=== PATIENT | female | born 1980 | race Caucasian/White ===

== ENCOUNTER 2023-09-11 09:31 | Outpatient (OUT) | payer OTHER, SELFPAY ==
--- NOTE | 2023-09-11 09:33 | MM_ITS ---
Patient Name: ARIANNA REED MR#: [id number] : 1980 Exam Date: 09/11/2023 Ordering Doctor: DR Tyron Duffy . RADIOLOGY REPORT PROCEDURE: MM TOMOSYNTHESIS SCREENING BI COMPARISON: [facility] MAMM DIAGNOSTIC 3D IGNACIA CAD, 06/26/2021. MG MAMM SCREEN 3D IGNACIA CAD, 09/08/2022. INDICATIONS: Screening Calculator Name NCI Breast Cancer Risk Assessment Tool 5 Year Breast Cancer Risk 0.80% Lifetime Breast Cancer Risk 12.20% Personal Breast Cancer No Personal Ovarian Cancer No Treatments None Family Cancers Grandmother-maternal with colon cancer at age 60. LOCATION: [facility] BREAST COMPOSITION: Extremely dense, which lowers the sensitivity of mammography. FINDINGS: DIAGNOSTIC CATEGORY 1--NEGATIVE. NO CHANGE FROM COMPARISON ASSESSMENT. Scattered benign-appearing lymph nodes are present. RIGHT BREAST: No significant suspicious finding. LEFT BREAST: No significant suspicious finding. RECOMMENDATIONS: ROUTINE MAMMOGRAM AND CLINICAL EVALUATION IN 12 MONTHS. PLEASE NOTE: A NORMAL MAMMOGRAM DOES NOT EXCLUDE THE POSSIBILITY OF BREAST CANCER. A CLINICALLY SUSPICIOUS PALPABLE LUMP SHOULD BE BIOPSIED. Dictated by: Dharmesh Smyth MD on 09/11/2023 at 12:58 Approved by: Dharmesh Smyth MD on 09/11/2023 at 13:00
== END 2023-09-11 09:32 | disposition home or self-care (01) ==
LOC: MAMMO 09:31
PROVIDERS: PCP Internal Medicine; Visit Provider Obstetrics & Gynecology
DX: Z12.31 Encounter for screening mammogram for malignant neoplasm of breast (principal); Z80.0 Family history of malignant neoplasm of digestive organs
CPT/HCPCS: 77063; 77067

== ENCOUNTER 2023-09-22 20:14 | Outpatient (REF) | payer OTHER, SELFPAY ==
[2023-09-25 13:09] LABS: Age Gdln ACOG Testing Note (.); HPV Aptima Negative (Negative); IGP, Aptima HPV, rfx 16/18,45 Note (.)
== END 2023-09-22 20:15 | disposition home or self-care (01) ==
LOC: LAB 20:14
PROVIDERS: PCP Internal Medicine; Visit Provider Obstetrics & Gynecology
DX: Z01.419 Encounter for gynecological examination (general) (routine) without abnormal findings (principal)
CPT/HCPCS: 87624; G0145

== ENCOUNTER 2024-09-12 09:30 | Outpatient (OUT) | payer OTHER, SELFPAY ==
--- OUTSIDE RECORDS SUMMARY | 2024-09-12 09:49 | XMS_ITS | CCD ---
Author Organization [facility] Care Team Providers Care Clinical Nursing Professor Name Role Phone DARLENE ., DR HUGHES Admitting Unavailable BALL, DR HENSLEY Primary Care Unavailable DARLENE ., DR HUGHES Consulting Unavailable DARLENE ., DR HUGHES Attending Unavailable ZIEBER, DR ELI Dawson Consulting Unavailable BALL, DR HENSLEY Consulting Unavailable HENOK, DR HENSLEY Attending Unavailable BALL, DR HENSLEY Admitting Unavailable BALL, DR HENSLEY Primary Care Unavailable DARLENE ., DR HUGHES Admitting Unavailable BALL, DR HENSLEY Primary Care Unavailable DARLENE ., DR HUGHES Attending Unavailable DARLENE ., DR HUGHES Admitting Unavailable DARLENE ., DR HUGHES Consulting Unavailable DARLENE ., DR HUGHES Attending Unavailable BALL, DR HENSLEY Primary Care Unavailable ZIEBER, DR ELI Dawson Consulting Unavailable DARLENE ., DR HUGHES Admitting Unavailable DARLENE ., DR HUGHES Consulting Unavailable DARLENE ., DR HUGHES Attending Unavailable BALL, DR HENSLEY Primary Care Unavailable DARLENE ., DR HUGHSE Attending Unavailable [place], DR DAVID Cárdenas Consulting Unavailable DARLENE ., DR HUGHES Admitting Unavailable HENOK, DR HENSLEY Primary Care Unavailable DARLENE ., DR HUGHES Consulting Unavailable HENOK, DR HENSLEY Attending Unavailable BALL, DR HENSLEY Admitting Unavailable HENOK, DR HENSLEY Primary Care Unavailable BALL, DR HENSLEY Consulting Unavailable Henok, Ayden Unavailable SAUL COLON Attending Unavailable Medications Current Medications Medication Drug Class(es) Dates Sig (Normalized) Sig (Original) benzonatate 100 mg oral capsule (2 sources) Non-narcotic Antitussive Start: 07-23-2023 take 1 capsule by mouth every eight hours Benzonatate 100 MG 1 capsule as needed Orally Three times a day for 10 days Jun, Active cefuroxime 250 mg oral tablet (2 sources) Cephalosporin Antibacterial Start: 07-23-2023 take 1 tablet by mouth every twelve hours Cefuroxime Axetil 250 MG 1 tablet Orally every 12 hrs for 7 days Jun, Active codeine phosphate 2 mg/ml / guaiFENesin 20 mg/ml oral solution (1 source) Opioid Agonist Start: 08-07-2023 take 10 mL by mouth every six hours as needed guaiFENesin-Code ine 100-10 MG/5ML 10 mL as needed Orally every 6 hours for 5 days Jul, Active fexofenadine / Pseudoephedrine (2 sources) alpha-Adrenergic Agonist, Histamine-1 Receptor Antagonist Start: 07-20-2024 take 1 tablet by mouth once daily Fexofenadine-Pse udoephedrine Active 1 TAB PO Daily July 20, 2024 12:00am FreeTextSi tablet Orally Once a day; Note: Source Status: Start; Refills: 0; Provider: Henok Mcdaniel Start: 08-07-2023 take 1 tablet by clarence th every twenty-four hours Fexofenadine-Pseudoephed ER 180-240 MG 1 tablet Orally Once a day for 30 days Jul, Active fluticasone propionate 0.05 mg/actuat metered dose nasal spray (2 sources) Corticosteroid Start: 07-20-2024 Fluticasone Pr opionate Active INTRANASAL July 20, 2024 12:00am FreeTextSig: SPRAY 2 SPRAYS INTO INTO EACH NOSTRIL EVERY DAY; Note: Source Status: Start; Refills: 1; Qty: 48 Milliliter; Provider: Henok Hensley ( ) Start: 08-07-2023 take 2 spray(s) nasa l route once daily Fluticasone Propionate 50 MCG/ACT 2 sprays each nostril Nasally Once a day for 30 days Jul, Active predniSONE 20 mg oral tablet (1 source) Start: 08-07-2023 take 1 tablet by mouth twice daily predniSONE 20 MG 1 tablet Orally twice daily w/ food for 5 days Jul, Active Completed/Discontinued Medications Medication Drug Class(es) Dates Sig (Normalized) Sig (Original) amoxicillin 875 mg / clavulanate 125 mg oral tablet (3 sources) Penicillin-class Antibacterial Start: 12-18-2023 End: 07-20-2024 take 1 tablet by mouth every twelve hours Amoxicillin-Pot Clavulanate Discontinued 1 TAB PO Every 12 hours 14 December 18, 2023 12:00am July 20, 2024 8:55am cefdinir 300 mg oral capsule (2 sources) Cephalosporin Antibacterial Start: 06-24-2022 take 1 capsule by mouth twice daily Cefdinir 300 MG cefdinir 300mg, 1 (one) Capsule two times daily # 14, 06/24/2022, Ref. x1. Active Oral two times daily for 7 May, Not-Taking doxycycline hyclate 100 mg oral capsule (2 sources) Tetracycline-class Drug Start: 12-30-2023 End: 07-20-2024 take 100 mg by mouth twice daily Doxycycline Hyclate Discontinued 100 MG PO Twice daily 14 December 30, 2023 12:00am July 20, 2024 8:55am Problems Active Problems Problem Classification Problem Date Documented Date Episodic/Chronic Acute bronchitis (1 source) Acute bronchitis due to other specified organisms Episodic Immunizations and screening for infectious disease (1 source) Encounter for screening for human papillomavirus (HPV); Translations: [ENC SCREENING HUMAN PAPILLOMAVIRUS] Onset: 09-09-2022 Episodic Menstrual disorders (4 sources) Excessive and frequent menstruation with irregular cycle; Translations: [EXCESS AND FREQ MEN W/IRREG CYCLE] Onset: 10-21-2022 Chronic Other screening for suspected conditions (not mental disorders or infectious disease) (7 sources) Encounter for screening for malignant neoplasm of cervix; Translations: [Encounter for screening mammogram for malignant neoplasm of breast] Onset: 09-08-2022 Episodic Other upper respiratory disease (2 sources) Allergic rhinitis due to pollen; Translations: [Allergic rhinitis due to pollen] Chronic Other upper respiratory disease (1 source) Allergic rhinitis due to pollen Chronic Other upper respiratory disease (2 sources) Allergic rhinitis; Translations: [Allergic rhinitis, unspecified] 12-18-2023 Chronic Other upper respiratory infections (2 sources) Chronic maxillary sinusitis; Translations: [Chronic maxillary sinusitis] Chronic Other upper respiratory infections (2 sources) Acute sinusitis, unspecified; Translations: [Acute sinusitis, unspecified] 12-18-2023 Episodic Otitis media and related conditions (1 source) Unspecified Eustachian tube disorder, bilateral Episodic Ovarian cyst (4 sources) Unspecified ovarian cyst, unspecified side; Translations: [UNSPECIFIED OVARIAN CYST UNSP SIDE] Onset: 12-02-2022 Episodic Residual codes; unclassified (1 source) Family history of malignant neoplasm of digestive organs; Translations: [FAM HX MALIG NEOPLASM DIGESTIV ORGN] Onset: 09-09-2022 Episodic Past or Other Problems Problem Classification Problem Date Documented Da te Episodic/Chronic Cardiac dysrhythmias (4 sources) Palpitations; Translations: [PALPITATIONS] Onset: 01-24-2022 Episodic Unclassified (1 source) Subacute cough R05.2 Results Test Name Value Interpretation Reference Range Facility US PELVIS AND TRANSVAGon US PELVIS AND TRANSVAG EXAMINATION: US PELVIS AND TRANSVAG HISTORY: Cyst of ovary ; follow-up right ovarian cyst COMPARISON: Ultrasound pelvis 10/21/2022 TECHNIQUE: Transabdominal and transvaginal sonographic examination. FINDINGS: UTERUS: Slightly hypervascular along peripheral margins, nonspecific. Uterus size: 9.3 x 3.8 x 6.2 cm ENDOMETRIUM: Normal homogeneous appearance. Endometrial thickness: 7 mm RIGHT OVARY: Normal size and appearance. Duplex Doppler demonstrates normal waveform and flow; resistive index 0.7. Ovary size: 3.0 x 1.5 x 2.1 cm LEFT OVARY: Normal size and appearance. Duplex Doppler demonstrates normal waveform and flow; resistive index 0.6. Ovary size: 2.8 x 1.7 x 2.5 cm CUL-DE-SAC: Unremarkable. No significant free fluid. BLADDER: Unremarkable. OTHER: None. IMPRESSION: 1. Normal-appearing right ovary; resolution of previously seen mild hyperdensity. Electronically authenticated by: ELI OSWALD Date: 2022-12-02 16:11 Normal [facility] CBC AUTO DIFFon 10-21-2022 BASO # 0.1 103/ul Normal 0.0-0.1 [facility] [place] Comment on above: Performed By: #### C BC #### [facility] [address] [place], [place] [address] Dr. Lilly Webb Basophils/100 WBC (Bld) 0.8 % Normal 0.2-2.0 [facility] [place] Comment on above: Performed By: #### C BC #### [facility] [address] [place], [place] [address] Dr. Lilly Webb EO # 0.1 103/ul Normal 0.0-0.7 [facility] [place] Comment on above: Performed By: #### C BC #### [facility] [address] [place] [address] Dr. Lilly Webb Eosinophils/100 WBC (Bld) 1.1 % Normal 0.9-7.0 [facility] [place] Comment on above: Performed By: #### C BC #### [facility] [address] [place] [address] Dr. Lilly Webb Erythrocyte distribution width (RBC) [Ratio] 11.9 % Normal 11.0-15.0 [facility] [place] Comment on above: Performed By: #### C BC #### [facility] [address] [place] [address] Dr. Lilly Webb Hematocrit (Bld) [Volume fraction] 43.7 % Normal 36.0-48.0 [facility] [place] Comment on above: Performed By: #### C BC #### [facility] [address] [place] [address] Dr. Lilly Webb Hemoglobin (Bld) [Mass/Vol] 14.3 g/dL Normal 12.0-16.0 [facility] [place] Comment on above: Performed By: #### C BC #### [facility] [address] [place] [address] Dr. Lilly Webb IG # 0.01 10e3/ul Normal 0.00-0.03 [facility] [place] Comment on above: Performed By: #### C BC #### [facility] [address] [place] [address] Dr. Lilly Webb IG % 0.2 % Normal 0.0-0.5 [facility] [place] Comment on above: Performed By: #### C BC #### [facility] [address] [place] [address] Dr. Lilly Webb LYMPH # 1.7 103/ul Normal 1.2-3.8 [facility] Comment on above: Performed By: #### C BC #### [facility] [address] [place] [address] Dr. Lilly Webb Lymphocytes/100 WBC (Bld) 25.9 % Normal 20.5-60.0 [facility] [place] Comment on above: Performed By: #### C BC #### [facility] [address] [place] [address] Dr. Lilly Webb MANUAL DIFF REQ NO Normal [facility] Comment on above: Performed By: #### C BC #### [facility] [address] [place] [address] Dr. Lilly Webb MCH (RBC) [Entitic mass] 31.2 pg Normal 26.7-34.0 [facility] [place] Comment on above: Performed By: #### C BC #### [facility] [address] [place] [address] Dr. Lilly Webb MCHC (RBC) [Mass/Vol] 32.7 g/dL Normal 29.9-35.2 [facility] [place] Comment on above: Performed By: #### C BC #### [facility] [address] [place] [address] Dr. Lilly Webb MCV (RBC) [Entitic vol] 95.2 fL Normal 81.0-99.0 [facility] [place] Comment on above: Performed By: #### C BC #### [facility] [address] [place] [address] Dr. Lilly Webb MONO # 0.4 103/ul Normal 0.3-0.8 [facility] [place] Comment on above: Performed By: #### C BC #### [facility] [address] [place] [address] Dr. Lilly Webb Monocytes/100 WBC (Bld) 6.6 % Normal 1.7-12.0 [facility] [place] Comment on above: Performed By: #### C BC #### [facility] [address] [place] [address] Dr. Lilly Webb NEUT # 4.3 103/ul Normal 1.4-6.5 [facility] Comment on above: Performed By: #### C BC #### [facility] [address] [place] [address] Dr. Lilly Webb Neutrophils/100 WBC (Bld) 65.4 % Normal 43.0-75.0 [facility] [place] Comment on above: Performed By: #### C BC #### [facility] [address] [place] [address] [address] Lilly Webb Platelet mean volume (Bld) [Entitic vol] 11.0 fL Normal 9.5-13.5 [facility] [place] Comment on above: Performed By: #### C BC #### [facility] [address] [place] [address] [address] Lilly Webb PLT 180 103/ul Normal 150-450 [facility] [place] Comment on above: Performed By: #### C BC #### [facility] [address] [place] [address] [address] Lilly Webb RBC 4.59 106/ul Normal 4.20-5.40 [facility] [place] Comment on above: Performed By: #### C BC #### [facility] [address] [place] [address] [address] Lilly Webb WBC 6.5 103/ul Normal 4.0-11.0 [facility] [place] Comment on above: Performed By: #### C BC #### [facility] [address] [place] [address] [address] Lilly Webb FREE T4on 10-21-2022 Free T4 [Mass/Vol] 0.90 ng/dL Normal 0.76-1.46 [facility] Comment on above: Performed By: #### F T4 ####[facility] [address] [address]Dr. Lilly Webb GLYCOHEMOGLOBIN A1Con 2022 ADA RECOMMENDATION SEE BELOW Normal [facility] Comment on above: Result Comment: ADA RECOMMENDED LIMIT 4.0 - 6.0 ADA THERAPEUTIC TARGET < 7.0 ACTION SUGGESTED > 7.0 Performed By: #### A 1C #### [facility] [address] [place] [address] Dr. Lilly Webb Glucose [Mass/Vol] 100 mg/dL Normal [facility] Comment on above: Performed By: #### A 1C #### [facility] [address] [place] [address] [address] Lilly Webb HbA1c (Bld) [Mass fraction] 5.1 % Normal 4.5-6.2 [facility] [place] Comment on above: Performed By: #### A 1C #### [facility] [address] [place] [address] [address] Lilly Webb PREG QUANT HCGon 10-21-2022 HCG QUANT <1 Normal [facility] [place] Comment on above: Performed By: #### T SH, PREGQNT ####[facility] [address] [place], [place] [address]Dr. Lilly Webb HCG RANGE SEE BELOW Normal [facility] Comment on above: Result Comment: 5-50 0.2-1 WEEK 50-500 1-2 WEEKS 100-5,000 2-3 WEEKS 500-10,000 3-4 WEEKS 1,000-50,000 4-5 WEEKS 10,000-100,000 5-6 WEEKS 15,000-200,000 6-8 WEEKS 10,000-100,000 2-3 MONTHS Performed By: #### T , PREGQNT ####[facility] [address] [place], [place] [address]Dr. Lilly Webb PROTIMEon 10-21-2022 INR Coag (PPP) [Relative time] 1.01 {INR} Normal [facility] [place] Comment on above: Performed By: #### P T, PTT ####[facility] [address] [place], [place] [address]Dr. Lilly Webb INR GUIDELINES SEE BELOW Normal [facility] Comment on above: Result Comment: SLICK RED INR: 2.0 - 3.0 CONDITIONS NOT LISTED BELOW 2.5 - 3.5 FOR PROSTHETIC HEART VALVE REPLACEMENT 2.5 - 3.5 RECURRENT THROMBOSIS Performed By: #### P T, PTT ####[facility] [address] [place], [place] [address]Dr. Lilly Webb PT Coag (PPP) [Time] 10.7 s Normal 9.0-11.6 [facility] Comment on above: Performed By: #### P T, PTT ####[facility] [address] [place], [place] [address]Dr. Lilly Webb PTTon 10-21-2022 aPTT Coag (Bld) [Time] 28.1 s Normal 22.3-36.2 [facility] [place] Comment on above: Performed By: #### P T, PTT ####[facility] [address] [place], [place] [address] Lilly Webb TSHon 10-21-2022 TSH 2.004 uIU/mL Normal 0.358-3.740 [facility] Comment on above: Performed By: #### T SH, PREGQNT ####[facility] [address] [place], [place] [address]XjSweta Webb US PELVIS AND TRANSVAGon US PELVIS AND TRANSVAG EXAMINATION: US PELVIS AND TRANSVAG HISTORY: Excessive menstruation with irregular cycle COMPARISON: No relevant comparison available. TECHNIQUE: Transabdominal and transvaginal sonographic examination. FINDINGS: UTERUS: Normal size and appearance. Uterus size: 9.3 x 5.4 x 4.2 cm ENDOMETRIUM: Normal homogeneous appearance. Endometrial thickness: 12 mm RIGHT OVARY: Contains a 1.8 x 1.5 x 1.2 cm slightly hyperechoic area without appreciable internal blood flow; possible complex cyst. Duplex Doppler demonstrates normal waveform and flow; resistive index 0.4. Ovary size: 3.0 x 2.1 x 2.2 cm LEFT OVARY: Normal size and appearance. Duplex Doppler demonstrates normal waveform and flow; resistive index 0.5. Ovary size: 4.3 x 2.1 x 2.3 cm CUL-DE-SAC: Unremarkable. No significant free fluid. BLADDER: Unremarkable. OTHER: None. IMPRESSION: 1. Normal appearance of uterus and endometrium. 2. Suspect complex cyst/hemorrhagic cyst within right ovary. Follow-up ultrasound in 6 weeks is recommended to document regression. Electronically authenticated by: ELI OSWALD Date: 2022-10-21 15:25 Normal [facility] [place] PAP ACOG PANEL 2: 30 to 65on 09-15-2022 . . Normal [facility] [place] Comment on above: Result Comment: Perf ormed at: WB Performed By: #### [id number] #### [facility] [address] [place], [place] [address] Dr. Lilly Webb Age Gdln ACOG Testing 30-65 Normal [facility] [place] Comment on above: Performed By: #### [id number] #### [facility] [address] [place] [address] Dr. Lilly Webb DIAGNOSIS: Comment Normal [facility] [place] Comment on above: Result Comment: NEGA TIVE FOR INTRAEPITHELIAL LESION OR MALIGNANCY. Performed at: WB Performed By: #### 4 [id number] #### [facility] [address] [place] [address] Dr. Lilly Webb HPV Aptima Negative Normal Negative [facility] [place] Comment on above: Result Comment: This nucleic acid amplification test detects fourteen high-risk HPV types (16,18,31,33,35,39,45,51,52,56,58,59,66,68) without differentiation. Performed at: =G Performed By: #### [id number] #### [facility] [address] [place] [address] Dr. Lilly Webb HPV Genotype Reflex Comment Normal [facility] Comment on above: Result Comment: Crit eria not met, HPV Genotype not performed. Performed at: WB Performed By: #### [id number] #### [facility] [address] [place] [address] Dr. Lilly Webb Methodology: Comment Normal [facility] [place] Comment on above: Result Comment: This liquid based ThinPrep(R) pap test was screened with the use of an image guided system. Performed at: WB Performed By: #### [id number] #### [facility] [address] [place] [address] Dr. Lilly Webb Note: Comment Normal [facility] [place] Comment on above: Result Comment: The Pap smear is a screening test designed to aid in the detection of premalignant and malignant conditions of the uterine cervix. It is not a diagnostic procedure and should not be used as the sole means of detecting cervical cancer. Both false-positive and false-negative reports do occur. . Performed at: WB Performed By: #### [id number] #### [facility] [address] [place] [address] Dr. Lilly Webb Performed by: Comment Normal [facility] Comment on above: Result Comment: Merna Phan, Corset Fitter (ASCP) Performed at: WB Performed By: #### [id number] #### [facility] [address] [address] [address] Lilly Webb Specimen adequacy: Comment Normal [facility] Comment on above: Result Comment: Sati sfactory for evaluation. Endocervical and/or squamous metaplastic cells (endocervical component) are present. Performed at: WB Performed By: #### 4 [id number] #### [facility] [address] [address] [address] Lilly Webb MG MAMM SCREEN 3D IGNACIA CADon 09-08-2022 MG MAMM SCREEN 3D IGNACIA CAD Patient: ARIANNA LAU Exam Date: 09/08/2022 : 1980 Gender:F Ordering : DR SAUL COLON . Admission #: [id number] Family : Order #: [id number] CLICK HERE TO VIEW EXAM RADIOLOGY REPORT PROCEDURE: MAMMOGRAM SCREENING 3D BILATERAL CAD COMPARISON: MG MAMM DIAGNOSTIC 3D IGNACIA CAD, 06/26/2021. INDICATIONS: Screening mammography Calculator Name NCI Breast Cancer Risk Assessment Tool 5 Year Breast Cancer Risk 0.80% Lifetime Breast Cancer Risk 12.40% Personal Breast Cancer No Personal Ovarian Cancer No Treatments None Family Cancers Grandmother-maternal with colon cancer at age 60. LOCATION: [facility] BREAST COMPOSITION: Extremely dense, which lowers the sensitivity of mammography. FINDINGS: DIAGNOSTIC CATEGORY 1--NEGATIVE. NO CHANGE FROM COMPARISON ASSESSMENT. Scattered benign-appearing lymph nodes are present. RIGHT BREAST: No significant suspicious finding. LEFT BREAST: No significant suspicious finding. RECOMMENDATIONS: ROUTINE MAMMOGRAM AND CLINICAL EVALUATION IN 12 MONTHS. PLEASE NOTE: A NORMAL MAMMOGRAM DOES NOT EXCLUDE THE POSSIBILITY OF BREAST CANCER. A CLINICALLY SUSPICIOUS PALPABLE LUMP SHOULD BE BIOPSIED. Dictated by: David Smyth MD on 09/08/2022 at 08:45 Approved by: David Smyth MD on 09/08/2022 at 08:46 Normal [facility] CBC AUTO DIFFon 01-29-2022 BASO # 0.1 103/ul Normal 0.0-0.1 [facility] [place] Comment on above: Performed By: #### C BC #### [facility] [address] [address] [address] Lilly Webb Basophils/100 WBC (Bld) 1.1 % Normal 0.2-2.0 [facility] [place] Comment on above: Performed By: #### C BC #### [facility] [address] [place] [address] Dr. Lilly Webb EO # 0.1 103/ul Normal 0.0-0.7 [facility] [place] Comment on above: Performed By: #### C BC #### [facility] [address] [place] [address] Dr. Lilly Webb Eosinophils/100 WBC (Bld) 1.6 % Normal 0.9-7.0 [facility] [place] Comment on above: Performed By: #### C BC #### [facility] [address] [place] [address] Dr. Lilly Webb Erythrocyte distribution width (RBC) [Ratio] 11.9 % Normal 11.0-15.0 [facility] [place] Comment on above: Performed By: #### C BC #### [facility] [address] [place] [address] Dr. Lilly Webb Hematocrit (Bld) [Volume fraction] 43.0 % Normal 36.0-48.0 [facility] [place] Comment on above: Performed By: #### C BC #### [facility] [address] [place] [address] Dr. Lilly Webb Hemoglobin (Bld) [Mass/Vol] 13.6 g/dL Normal 12.0-16.0 [facility] [place] Comment on above: Performed By: #### C BC #### [facility] [address] [place] [address] Dr. Lilly Webb IG # 0.01 10e3/ul Normal 0.00-0.03 [facility] [place] Comment on above: Performed By: #### C BC #### [facility] [address] [place] [address] Dr. Lilly Webb IG % 0.2 % Normal 0.0-0.5 [facility] [place] Comment on above: Performed By: #### C BC #### [facility] [address] [place] [address] Dr. Lilly Webb LYMPH # 1.5 103/ul Normal 1.2-3.8 [facility] [place] Comment on above: Performed By: #### C BC #### [facility] [address] [place] [address] Dr. Lilly Webb Lymphocytes/100 WBC (Bld) 27.6 % Normal 20.5-60.0 [facility] [place] Comment on above: Performed By: #### C BC #### [facility] [address] [place] [address] Dr. Lilly Webb MANUAL DIFF REQ NO Normal [facility] Comment on above: Performed By: #### C BC #### [facility] [address] [place] [address] Dr. Lilly Webb MCH (RBC) [Entitic mass] 30.8 pg Normal 26.7-34.0 [facility] Comment on above: Performed By: #### C BC #### [facility] [address] [place] [address] Dr. Lilly Webb MCHC (RBC) [Mass/Vol] 31.6 g/dL Normal 29.9-35.2 [facility] Comment on above: Performed By: #### C BC #### [facility] [address] [place] [address] Dr. Lilly Webb MCV (RBC) [Entitic vol] 97.5 fL Normal 81.0-99.0 [facility] Comment on above: Performed By: #### C BC #### [facility] [address] [place] [address] Dr. Lilly Webb MONO # 0.5 103/ul Normal 0.3-0.8 [facility] Comment on above: Performed By: #### C BC #### [facility] [address] [place] [address] Dr. Lilly Webb Monocytes/100 WBC (Bld) 8.1 % Normal 1.7-12.0 [facility] Comment on above: Performed By: #### C BC #### [facility] [address] [place] [address] Dr. Lilly Webb NEUT # 3.4 103/ul Normal 1.4-6.5 [facility] Comment on above: Performed By: #### C BC #### [facility] [address] [address] [address] Lilly Webb Neutrophils/100 WBC (Bld) 61.4 % Normal 43.0-75.0 [facility] Comment on above: Performed By: #### C BC #### [facility] [address] [address] [address] Lilly Webb Platelet mean volume (Bld) [Entitic vol] 10.5 fL Normal 9.5-13.5 [facility] Comment on above: Performed By: #### C BC #### [facility] [address] [place] [address] Dr. Lilly Webb PLT 183 103/ul Normal 150-450 [facility] Comment on above: Performed By: #### C BC #### [facility] [address] [place] [address] Dr. Lilly Webb RBC 4.41 106/ul Normal 4.20-5.40 [facility] Comment on above: Performed By: #### C BC #### [facility] [address] [place] [address] Dr. Lilly Webb WBC 5.6 103/ul Normal 4.0-11.0 [facility] Comment on above: Performed By: #### C BC #### [facility] [address] [place] [address] Dr. Lilly Webb LIPID PROFILEon 01-29-2022 CHOL-HDL RATIO NORM SEE BELOW Normal [facility] Comment on above: Result Comment: 3.3 - 4.4 LOW RISK 4.4 - 7.1 AVERAGE RISK 7.1 - 11.0 MODERATE RISK >11.0 HIGH RISK Performed By: #### L IPID, TSH, CMP #### [facility] [address] [place] [address] Dr. Lilly Webb Cholesterol [Mass/Vol] 183 mg/dL Normal <=200 [facility] Comment on above: Performed By: #### L IPID, TSH, CMP #### [facility] [address] [place] [address] Dr. Lilly Webb Cholesterol in HDL [Mass/Vol] 81 mg/dL Critically high 40-60 [facility] Comment on above: Performed By: #### L IPID, TSH, CMP #### [facility] [address] [address] [address] Lilly Webb Cholesterol in LDL [Mass/Vol] 91.0 mg/dL Normal [facility] Comment on above: Performed By: #### L IPID, TSH, CMP #### [facility] [address] [address] [address] Lilly Webb Cholesterol.total/Cho lesterol in HDL [Mass ratio] 2.3 {ratio} Normal [facility] Comment on above: Performed By: #### L IPID, TSH, CMP #### [facility] [address] [place] [address] Dr. Lilly Webb HDL NORMAL > or = 60 mg/dl - LO W CARDIOVASCULAR RISK <40 mg/dl - HIGH CARDIOVASCULAR RISK Normal [facility] Comment on above: Performed By: #### L IPID, TSH, CMP #### [facility] [address] [place] [address] Dr. Lilly Webb LDL CALC NORMAL SEE BELOW Normal [facility] Comment on above: Result Comment: <100 mg/dl OPTIMAL 100 - 129 mg/dl NEAR OR ABOVE OPTIMAL 130 - 159 mg/dl BORDERLINE HIGH 160 - 189 mg/dl HIGH >190 mg/dl VERY HIGH Performed By: #### L IPID, TSH, CMP #### [facility] [address] [place] [address] Dr. Lilly Webb Triglyceride [Mass/Vol] 55 mg/dL Normal <=150 [facility] Comment on above: Performed By: #### L IPID, TSH, CMP #### [facility] [address] [place] [address] Dr. Lilly Webb VLDL CALC 11.0 mg/dL Normal [facility] Comment on above: Performed By: #### L IPID, TSH, CMP #### [facility] [address] [place] [address] Dr. Lilly Webb PROF 14(COMP METB)on 022 Albumin [Mass/Vol] 4.1 g/dL Normal 3.4-5.0 [facility] Comment on above: Performed By: #### L IPID, TSH, CMP #### [facility] [address] [place] [address] Dr. Lilly Webb Albumin/Globulin [Mass ratio] 1.2 {ratio} Normal [facility] Comment on above: Performed By: #### L IPID, TSH, CMP #### [facility] [address] [place] [address] Dr. Lilly Webb ALP [Catalytic activity/Vol] 75 U/L Normal 46-116 [facility] Comment on above: Performed By: #### L IPID, TSH, CMP #### [facility] [address] [place] [address] Dr. Lilly Webb ALT [Catalytic activity/Vol] 21 U/L Normal 14-59 [facility] Comment on above: Performed By: #### L IPID, TSH, CMP #### [facility] [address] [place] [address] Dr. Lilly Webb Anion gap [Moles/Vol] 7.0 mmol/L Normal [facility] Comment on above: Performed By: #### L IPID, TSH, CMP #### [facility] [address] [place] [address] Dr. Lilly Webb AST [Catalytic activity/Vol] 13 U/L Critically low 15-37 [facility] Comment on above: Performed By: #### L IPID, TSH, CMP #### [facility] [address] [place] [address] Dr. Lilly Webb Bilirubin [Mass/Vol] 0.9 mg/dL Normal 0.2-1.0 [facility] Comment on above: Performed By: #### L IPID, TSH, CMP #### [facility] [address] [place] [address] Dr. Lilly Webb Calcium [Mass/Vol] 8.6 mg/dL Normal 8.5-10.1 [facility] Comment on above: Performed By: #### L IPID, TSH, CMP #### [facility] [address] [address] [address] Lilly Webb Chloride [Moles/Vol] 103 mmol/L Normal 98-107 [facility] Comment on above: Performed By: #### L IPID, TSH, CMP #### [facility] [address] [address] [address] Lilly Webb CO2 [Moles/Vol] 29.1 mmol/L Normal 21.0-32.0 [facility] Comment on above: Performed By: #### L IPID, TSH, CMP #### [facility] [address] [address] [address] Lilly Webb Creatinine [Mass/Vol] 0.80 mg/dL Normal 0.55-1.02 [facility] Comment on above: Performed By: #### L IPID, TSH, CMP #### [facility] [address] [place] [address] Dr. Lilly Webb EGFR-AF NORWEGIAN >60 Normal >=60 [facility] Comment on above: Performed By: #### L IPID, TSH, CMP #### [facility] [address] [place] [address] Dr. Lilly Webb EGFR-NON AF NORWEGIAN >60 Normal >=60 [facility] Comment on above: Performed By: #### L IPID, TSH, CMP #### [facility] [address] [place] [address] Dr. Lilly Webb Globulin (S) [Mass/Vol] 3.5 g/dL Normal [facility] Comment on above: Performed By: #### L IPID, TSH, CMP #### [facility] [address] [place] [address] Dr. Lilly Webb Glucose [Mass/Vol] 76 mg/dL Normal 74-106 [facility] Comment on above: Performed By: #### L IPID, TSH, CMP #### [facility] [address] [place] [address] Dr. Lilly Webb Potassium [Moles/Vol] 4.1 mmol/L Normal 3.5-5.1 [facility] Comment on above: Performed By: #### L IPID, TSH, CMP #### [facility] [address] [place] [address] Dr. Lilly Webb Protein [Mass/Vol] 7.6 g/dL Normal 6.1-8.2 [facility] Comment on above: Performed By: #### L IPID, TSH, CMP #### [facility] [address] [place] [address] Dr. Lilly Webb Sodium [Moles/Vol] 135 mmol/L Critically low 136-145 [facility] Comment on above: Performed By: #### L IPID, TSH, CMP #### [facility] [address] [place] [address] Dr. Lilly Webb Urea nitrogen [Mass/Vol] 12.0 mg/dL Normal 7.0-18.0 [facility] Comment on above: Performed By: #### L IPID, TSH, CMP #### [facility] [address] [place] [address] Dr. Lilly Webb Urea nitrogen/Creatinine [Mass ratio] 15.0 mg/mg Normal [facility] Comment on above: Performed By: #### L IPID, TSH, CMP #### [facility] [address] [place] [address] Dr. Lilly Webb TSHon 01-29-2022 TSH 1.715 uIU/mL Normal 0.470-4.680 [facility] Comment on above: Performed By: #### L IPID, TSH, CMP #### [facility] [address] [place] [address] Dr. Lilly Webb TSH RANGE SEE BELOW Normal [facility] Comment on above: Result Comment: <0.3 4 UIU/ml HYPERTHYROID 0.34-5.60 UIU/ml EUTHYROID >5.60 UIU/ml HYPOTHYROID Performed By: #### L IPID, TSH, CMP #### [facility] [address] [place] [address] Dr. Lilly Webb Vital Signs Date Time Vital Sign Value Performing Clinician Faci lity 07-20-2024 08:55-0400 Body height 165.1 cm [facility] 07-20-2024 08:55-0400 Body mass index (BMI) [Ratio] 18.7 kg/m2 [facility] 07-20-2024 08:55-0400 Body weight 51.02 kg [facility] 07-20-2024 08:55-0400 Diastolic blood pressure 64 mm[Hg] [facility] 07-20-2024 08:55-0400 Heart rate 72 /min [facility] 07-20-2024 08:55-0400 Respiratory rate 12 /min [facility] 07-20-2024 08:55-0400 Systolic blood pressure 96 mm[Hg] [facility] Encounters Encounter Date Encounter Type Care Provider Facility Start: 07-20-2024 End: 07-20-2024 ambulatory [facility] Work Phone: Start: 07-20-2024 End: 07-20-2024 Encounter for general adult medical examination without abnormal findings [facility] Start: 07-20-2024 End: 07-20-2024 Patient encounter procedure [facility] Physician [facility] Work Phone: Start: 07-17-2024 Patient encounter status [facility] Start: 12-30-2023 End: 12-30-2023 ambulatory [facility] Work Phone: Start: 12-30-2023 End: 12-30-2023 Patient encounter procedure [facility] Physician [facility] Work Phone: Start: 12-18-2023 End: 12-18-2023 ambulatory [facility] Work Phone: Start: 12-18-2023 End: 12-18-2023 Patient encounter procedure [facility] Physician [facility] Work Phone: Start: 09-22-2023 End: 09-22-2023 ambulatory SAUL COLON Not Available Start: 08-07-2023 End: 08-07-2023 ambulatory Ayden José Other [employer] Other Start: 08-07-2023 Office outpatient vi sit 15 minutes Ayden José [facility] Start: 07-23-2023 End: 07-23-2023 ambulatory Ayden José Other [facility] [employer] Other Start: 07-23-2023 Office outpatient vi sit 15 minutes Ayden José [facility] Start: 12-02-2022 End: 12-03-[address] SAUL COLON . Facility:[facility] Start: 10-21-2022 End: 10-21-[address] SAUL COLON . Facility:[facility] Start: 10-21-2022 End: 10-22-[address] SAUL COLON . Facility:[facility] Start: 09-08-2022 End: 09-08-[address] ASUL COLON . Facility:[facility] Start: 09-08-2022 End: 09-09-[address] SAUL COLON . Facility:[facility] Start: 01-30-2022 Encounter for genera l adult medical examination without abnormal findings DR AYDEN JOSÉ [facility] Start: 01-29-2022 End: 01-30-[address] AYDEN JOSÉ Facility:[facility] Start: 01-29-2022 End: 01-30-2022 Encounter for general adult medical examination without abnormal findings DR AYDEN JOSÉ Facility:[facility] Start: 01-24-2022 End: 01-25-[address] AYDEN JOSÉ Facility:[facility] Plan of Treatment Date Care Activity Detail Author Comprehensive metabo lic 1999 panel - Serum or Plasma [facility] enter [facility] Payers Date Payer Category Payer Unknown [id number] [id number] [id number] 1980 Unknown [id number] 2.16.84 [id number] 1980 Unknown [id number] 1980 Unknown [id number] 2.16.84 [id number] 1980 Unknown [id number] 2.16.84 [id number] 1980 Unknown [id number] 2.16.84 [id number] 1980 Unknown [id number] 2.16.84 [id number] 1980 Unknown [id number] 1959 Private Health Insurance [id number] Social History Date Type Detail Facility Sex Assigned At [employer] Other Start: 1980 Sex Assigned At Female F [facility] Evaluation note 08-07-2023 Note Date & Type Note Facility 08-07-2023 Evaluation note Encounter Date Diagnosis Assessment Notes Jul, Chronic maxillary sinusitis (ICD-10 - J32.0) Instructed on Claritin D, Flonase NS Short course of steroids Jul, Dysfunction of both eustachian tubes (ICD-10 - H69.93) Claritin D w/ Flonase. Short course of antibiotic Jul, Subacute cough (ICD-10 - R05.2) Treatment of any PND Codeine cough suppressant [employer] Other Evaluation note 07-23-2023 Note Date & Type Note Facility 07-23-2023 Evaluation note Encounter Date Diagnosis Assessment Notes Jun, Seasonal allergic rhinitis due to pollen (ICD-10 - J30.1) Avoid smoke, dust and allegens. Begin Flonase and nonsedating antihistamine Jun, Acute bronchitis due to other specified organisms (ICD-10 - J20.8) Instructed to use Robitussin or Mucinex for cough, saline or Flonase NS for congestion, Tylenol for pain and fever. [employer] Other History general Narrative - Reported 02-26-2013 Note Date & Type Note Facility 02-26-2013 History general N arrative - Reported Type Medical History Seasonal allergic rh initis due to pollen Surgical History Adenoidectomy 02/2013 Surgical History Right Middle Turbine ctomy, Right Maxillary Antrostomy 02/2011 Hospitalization History see surgical history [employer] Other Evaluation note Note Date & Type Note Facility Evaluation note No assessment information availa ble [facility] Work Phone: Evaluation note Note Date & Type Note Facility Evaluation note Diagnosis Onset Date Acute sinusitis noneactive Acute sinusitis noneactive [facility] Work Phone: Evaluation note Note Date & Type Note Facility Evaluation note Diagnosis Onset Date Screening mammogram for breast cancer acute Wellness examination acute [facility] Work Phone: Summary Purpose Family History No Family History Records FoundNo Family History Records Found Advance Directives Advance Directive Response Recorded Date/ Time Advance Directives No December 17 12:11pm Advance Directive Response Recorded Date/ Time Advance Directives No July 06, 2024 11:08am Chief Complaint and Reason for Visit Chief Complaint [phone] Chief Complaint [phone] sinus infection [phone] Reason for Visit Acute sinusitis Acute sinusitis Chief Complaint wellness/Lt elbow pa in Reason for Visit Screening mammogram for breast cancer Wellness examination Additional Source Comments INFORMATION SOURCE (unrecogn ized section and content) DATE CREATED AUTHOR 12/06/2022 [facility] DATE CREATED AUTHOR 'S ORGANIZ ATION 09/24/2023 [facility] EPIC REASON FOR VISIT (unrecogniz ed section and content) on going cough [phone] inus pressure- in [place]- Care Teams (unrecognized sec tion and content) Team Status: Active Member Role Status Dates Ayden José DO Primary Care Provider Active Team Status: Inactive Member Role Status Dates Ayden José DO Primary Care Provide r, Attending Provider Active Start: December 18, 2023 End: December 18, 2023 Team Status: Inactive Member Role Status Dates Ayden José DO Primary Care Provide r, Attending Provider Active Start: December 30, 2023 End: December 30, 2023 Team Status: Inactive Member Role Status Dates Ayden José DO Primary Care Provide r, Attending Provider Active Start: July 20, 2024 End: July 20, 2024 Goals (unrecognized section and content) Goals may be documented in a n alternate section FOR RECORDS PERTAINING TO PATIENTS WHO ARE OR HAVE BEEN ENROLLED IN A CHEMICAL DEPENDENCY/SUBSTANCEABUSE PROGRAM, SOME INFORMATION MAY BE OMITTED. This clinical summary was aggregated from multiple sources. Caution should be exercised in using it in the provision of clinical care. This summary normalizes information from multiple sources, and as a consequence, information in this document may materially change the coding, format and clinical context of patient data. In addition, data may be omitted in some cases. CLINICAL DECISIONS SHOULD BE BASED ON THE PRIMARY CLINICAL RECORDS. [facility]. provides no warranty or guarantee of the accuracy or completeness of information in this document.
[2024-09-12 10:50] LABS: Alanine Aminotransferase 21 U/L (14-59); Albumin Globulin Ratio 1.1; Albumin Level 4.1 g/dL (3.4-5.0); Alkaline Phosphatase 63 U/L (46-116); Aspartate Amino Transferase 20 U/L (15-37); BUN Creatinine Ratio 14.3; Bilirubin Total 0.7 mg/dL (0.2-1.0); Calcium 9.1 mg/dL (8.5-10.1); Chloride 104 mmol/L (98-107); Chol HDL Ratio 2.3; Cholesterol 207 mg/dL (<=200); Estimated GFR (African America >60 (>=60 mL/min/1.73m^2); Estimated GFR (Non-African Ame >60 (>=60 mL/min/1.73m^2); Globulin 3.6 g/dL; Glucose 79 mg/dL (74-106); HDL Cholesterol 91 mg/dL (40-60); Sodium 141 mmol/L (136-145); Thyroid Stimulating Hormone 1.879 uIU/mL (0.358-3.740); Total Protein 7.7 g/dL (6.4-8.2); Triglycerides 58 mg/dL (<=150); VLDL CHOLESTEROL 11.6 mg/dL
[2024-09-12 11:05] LABS: Basophils Absolute Auto 0.1 10^3/uL (0.0-0.1); Basophils Percent Auto 1.2 % (0.2-2.0); Eosinophils Absolute Auto 0.1 10^3/uL (0.0-0.7); Eosinophils Percent Auto 1.6 % (0.9-7.0); Hematocrit 43.4 % (36.0-48.0); Immature Granulocytes Abs Auto 0.01 10^3/uL (0.00-0.03); Immature Granulocytes Pct Auto 0.2 % (0.0-0.5); Lymphocytes Absolute Auto 1.8 10^3/uL (1.2-3.8); Lymphocytes Percent Auto 35.1 % (20.5-60.0); Mean Corpuscular HGB Conc 32.3 g/dL (29.9-35.2); Mean Corpuscular Hemoglobin 31.1 pg (26.7-34.0); Mean Corpuscular Volume 96.4 fL (81.0-99.0); Monocytes Absolute Auto 0.4 10^3/uL (0.3-0.8); Monocytes Percent Auto 7.4 % (1.7-12.0); Neutrophils Absolute Auto 2.7 10^3/uL (1.4-6.5); Neutrophils Percent Auto 54.5 % (43.0-75.0); Platelet Count 200 10^3/uL (150-450); Red Cell Distribution Width 11.9 % (11.0-15.0)
== END 2024-09-12 09:31 | disposition home or self-care (01) ==
PROVIDERS: PCP Internal Medicine; Visit Provider Internal Medicine
DX: Z00.00 Encounter for general adult medical examination without abnormal findings (principal); Z12.31 Encounter for screening mammogram for malignant neoplasm of breast; Z80.0 Family history of malignant neoplasm of digestive organs
CPT/HCPCS: 36415; 77063; 77067; 80053; 80061; 84443; 85025

== ENCOUNTER 2024-09-12 09:42 | Outpatient (OUT) | payer OTHER, SELFPAY ==
--- NOTE | 2024-09-12 09:48 | MM_ITS ---
Patient Name: WILLI REED MR#: [id number] : 1980 Exam Date: 09/12/2024 Ordering Doctor: DR Tyron Duffy . RADIOLOGY REPORT PROCEDURE: MM TOMOSYNTHESIS SCREENING BI COMPARISON: MG MAMM SCREEN 3D IGNACIA CAD, 09/08/2022. MM TOMOSYNTHESIS SCREENING BI, 09/11/2023. INDICATIONS: Screening Calculator Name NCI Breast Cancer Risk Assessment Tool 5 Year Breast Cancer Risk 0.90% Lifetime Breast Cancer Risk 12.10% Personal Breast Cancer No Personal Ovarian Cancer No Treatments None Family Cancers Grandmother-maternal with colon cancer at age 60. LOCATION: [facility] BREAST COMPOSITION: The breasts are extremely dense, which lowers the sensitivity of mammography. FINDINGS: DIAGNOSTIC CATEGORY 1--NEGATIVE. NO CHANGE FROM COMPARISON ASSESSMENT. RIGHT BREAST: No significant suspicious finding. LEFT BREAST: No significant suspicious finding. RECOMMENDATIONS: ROUTINE MAMMOGRAM AND CLINICAL EVALUATION IN 12 MONTHS. PLEASE NOTE: A NORMAL MAMMOGRAM DOES NOT EXCLUDE THE POSSIBILITY OF BREAST CANCER. A CLINICALLY SUSPICIOUS PALPABLE LUMP SHOULD BE BIOPSIED. Dictated by: Dharmesh Smyth MD on 09/12/2024 at 13:24 Approved by: Dharmesh Smyth MD on 09/12/2024 at 13:25
--- OUTSIDE RECORDS SUMMARY | 2024-09-12 10:02 | XMS_ITS | CCD ---
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 Lilly Webb Basophils/100 WBC (Bld) 0.8 % Normal 0.2-2.0 [facility] Comment on above: Performed By: #### C BC #### [facility] [address] [place], [place] [address] Dr. Lilly Webb EO # 0.1 103/ul Normal 0.0-0.7 [facility] Comment on above: Performed By: #### C BC #### [facility] [address] [place] [address] Dr. Lilly Webb Eosinophils/100 WBC (Bld) 1.1 % Normal 0.9-7.0 [facility] Comment on above: Performed By: #### C BC #### [facility] [address] [place] [address] Dr. Lilly Webb Erythrocyte distribution width (RBC) [Ratio] 11.9 % Normal 11.0-15.0 [facility] Comment on above: Performed By: #### C BC #### [facility] [address] [place] [address] Dr. Lilly Webb Hematocrit (Bld) [Volume fraction] 43.7 % Normal 36.0-48.0 [facility] Comment on above: Performed By: #### C BC #### [facility] [address] [place] [address] Dr. Lilly Webb Hemoglobin (Bld) [Mass/Vol] 14.3 g/dL Normal 12.0-16.0 [facility] Comment on above: Performed By: #### C BC #### [facility] [address] [place] [address] Dr. Lilly Webb IG # 0.01 10e3/ul Normal 0.00-0.03 [facility] Comment on above: Performed By: #### C BC #### [facility] [address] [place] [address] Dr. Lilly Webb IG % 0.2 % Normal 0.0-0.5 [facility] Comment on above: Performed By: #### C BC #### [facility] [address] [place] [address] Dr. Lilly Webb LYMPH # 1.7 103/ul Normal 1.2-3.8 [facility] Comment on above: Performed By: #### C BC #### [facility] [address] [place] [address] Dr. Lilly Webb Lymphocytes/100 WBC (Bld) 25.9 % Normal 20.5-60.0 [facility] Comment on above: Performed By: #### C BC #### [facility] [address] [place] [address] Dr. Lilly Webb MANUAL DIFF REQ NO Normal [facility] Comment on above: Performed By: #### C BC #### [facility] [address] [place] [address] Dr. Lilly Webb MCH (RBC) [Entitic mass] 31.2 pg Normal 26.7-34.0 [facility] Comment on above: Performed By: #### C BC #### [facility] [address] [place] [address] Dr. Lilly Webb MCHC (RBC) [Mass/Vol] 32.7 g/dL Normal 29.9-35.2 [facility] Comment on above: Performed By: #### C BC #### [facility] [address] [place] [address] Dr. Lilly Webb MCV (RBC) [Entitic vol] 95.2 fL Normal 81.0-99.0 [facility] Comment on above: Performed By: #### C BC #### [facility] [address] [place] [address] Dr. Lilly Webb MONO # 0.4 103/ul Normal 0.3-0.8 [facility] Comment on above: Performed By: #### C BC #### [facility] [address] [place] [address] Dr. Lilly Webb Monocytes/100 WBC (Bld) 6.6 % Normal 1.7-12.0 [facility] Comment on above: Performed By: #### C BC #### [facility] [address] [place] [address] Dr. Lilly Webb NEUT # 4.3 103/ul Normal 1.4-6.5 [facility] Comment on above: Performed By: #### C BC #### [facility] [address] [place] [address] Dr. Lilly Webb Neutrophils/100 WBC (Bld) 65.4 % Normal 43.0-75.0 [facility] Comment on above: Performed By: #### C BC #### [facility] [address] [place] [address] [address] Lilly Webb Platelet mean volume (Bld) [Entitic vol] 11.0 fL Normal 9.5-13.5 [facility] Comment on above: Performed By: #### C BC #### [facility] [address] [place] [address] [address] Lilly Webb PLT 180 103/ul Normal 150-450 [facility] Comment on above: Performed By: #### C BC #### [facility] [address] [place] [address] [address] Lilly Webb RBC 4.59 106/ul Normal 4.20-5.40 [facility] Comment on above: Performed By: #### C BC #### [facility] [address] [place] [address] [address] Lilly Webb WBC 6.5 103/ul Normal 4.0-11.0 [facility] Comment on above: Performed By: #### C BC #### [facility] [address] [place] [address] [address] Lilly Webb FREE T4on 10-21-2022 Free T4 [Mass/Vol] 0.90 ng/dL Normal 0.76-1.46 [facility] Comment on above: Performed By: #### F T4 ####[facility] [address] [address]Dr. Lilyl Webb GLYCOHEMOGLOBIN A1Con 2022 ADA RECOMMENDATION SEE BELOW Normal [facility] Comment on above: Result Comment: ADA RECOMMENDED LIMIT 4.0 - 6.0 ADA THERAPEUTIC TARGET < 7.0 ACTION SUGGESTED > 7.0 Performed By: #### A 1C #### [facility] [address] [place] [address] Dr. Lilly Webb Glucose [Mass/Vol] 100 mg/dL Normal [facility] Comment on above: Performed By: #### A 1C #### [facility] [address] [place] [address] [address] Lilly Webb HbA1c (Bld) [Mass fraction] 5.1 % Normal 4.5-6.2 [facility] Comment on above: Performed By: #### A 1C #### [facility] [address] [address] [address] Lilly Webb PREG QUANT HCGon 10-21-2022 HCG QUANT <1 Normal [facility] Comment on above: Performed By: #### T SH, PREGQNT ####[facility] [address] [place], [place] [address]Dr. Lilly Webb HCG RANGE SEE BELOW Normal [facility] Comment on above: Result Comment: 5-50 0.2-1 WEEK 50-500 1-2 WEEKS 100-5,000 2-3 WEEKS 500-10,000 3-4 WEEKS 1,000-50,000 4-5 WEEKS 10,000-100,000 5-6 WEEKS 15,000-200,000 6-8 WEEKS 10,000-100,000 2-3 MONTHS Performed By: #### T , PREGQNT ####[facility] [address] [place], [place] [address]Dr. Lilly Webb PROTIMEon 10-21-2022 INR Coag (PPP) [Relative time] 1.01 {INR} Normal [facility] Comment on above: Performed By: #### P T, PTT ####[facility] [address] [place], [place] [address]Dr. Lilly Webb INR GUIDELINES SEE BELOW Normal [facility] Comment on above: Result Comment: SLICK RED INR: 2.0 - 3.0 CONDITIONS NOT LISTED BELOW 2.5 - 3.5 FOR PROSTHETIC HEART VALVE REPLACEMENT 2.5 - 3.5 RECURRENT THROMBOSIS Performed By: #### P T, PTT ####[facility] [address] [place], [place] [address]Dr. Lilly Webb PT Coag (PPP) [Time] 10.7 s Normal 9.0-11.6 [facility] Comment on above: Performed By: #### P T, PTT ####[facility] [address] [place], [place] [address]Dr. Lilly Webb PTTon 10-21-2022 aPTT Coag (Bld) [Time] 28.1 s Normal 22.3-36.2 [facility] Comment on above: Performed By: #### P T, PTT ####[facility] [address] [place], [place] [address]GtDr. Lilly Webb TSHon 10-21-2022 TSH 2.004 uIU/mL Normal 0.358-3.740 [facility] Comment on above: Performed By: #### T SH, PREGQNT ####[facility] [address] [place], [place] [address]SgSweta Webb US PELVIS AND TRANSVAGon US PELVIS [...] by: ELI OSWALD Date: 2022-10-21 15:25 Normal [facility] PAP ACOG PANEL 2: 30 to 65on 09-15-2022 . . Normal [facility] Comment on above: Result Comment: Perf ormed at: WB Performed By: #### [id number] #### [facility] [address], [place] [address] Dr. Lilly Webb Age Gdln ACOG Testing 30-65 Normal [facility] Comment on above: Performed By: #### [id number] #### [facility] [address] [place] [address] Dr. Lilly Webb DIAGNOSIS: Comment Normal [facility] Comment on above: Result Comment: NEGA TIVE FOR INTRAEPITHELIAL LESION OR MALIGNANCY. Performed at: WB Performed By: #### [id number] #### [facility] [address] [place] [address] Dr. Lilly Webb HPV Aptima Negative Normal Negative [facility] Comment on above: Result Comment: This nucleic acid amplification test detects fourteen high-risk HPV types (16,18,31,33,35,39,45,51,52,56,58,59,66,68) without differentiation. Performed at: =G Performed By: #### [id number] #### [facility] [address] [place] [address] Dr. Lilly Webb HPV Genotype Reflex Comment Normal [facility] Comment on above: Result Comment: Crit eria not met, HPV Genotype not performed. Performed at: WB Performed By: #### [id number] #### [facility] [address] [place] [address] Dr. Lilly Webb Methodology: Comment Normal [facility] Comment on above: Result Comment: This liquid based ThinPrep(R) pap test was screened with the use of an image guided system. Performed at: WB Performed By: #### [id number] #### [facility] [address] [place] [address] Dr. Lilly Webb Note: Comment Normal [facility] Comment on above: Result Comment: The Pap smear is a screening test designed to aid in the detection of premalignant and malignant conditions of the uterine cervix. It is not a diagnostic procedure and should not be used as the sole means of detecting cervical cancer. Both false-positive and false-negative reports do occur. . Performed at: WB Performed By: #### [id number] #### [facility] [address] [place] [address] Dr. Lilly Webb Performed by: Comment Normal [facility] Comment on above: Result Comment: Merna Phan, Spool Cleaner (ASCP) Performed at: WB Performed By: #### [id number] #### [facility] [address] [place] [address] [address] Lilly Webb Specimen adequacy: Comment Normal [facility] Comment on above: Result Comment: Sati sfactory for evaluation. Endocervical and/or squamous metaplastic cells (endocervical component) are present. Performed at: WB Performed By: #### [id number] #### [facility] [address] [place] [address] [address] Lilly Webb MG MAMM SCREEN 3D IGNACIA CADon 09-08-2022 MG MAMM SCREEN 3D IGNACIA CAD Patient: ARIANNA LAU Exam Date: 09/08/2022 : 1980 Gender:F Ordering : DR SAUL COLON . Admission #: [id number] Family : Order #: [id number] CLICK HERE TO VIEW EXAM RADIOLOGY REPORT [...] colon cancer at age 60. LOCATION: [facility] BREAST COMPOSITION: Extremely dense, which lowers the [...] MD on 09/08/2022 at 08:46 Normal [facility] CBC AUTO DIFFon 01-29-2022 BASO # 0.1 103/ul Normal 0.0-0.1 [facility] Comment on above: Performed By: #### C BC #### [facility] [address] [address] [address] Lilly Webb Basophils/100 WBC (Bld) 1.1 % Normal 0.2-2.0 [facility] Comment on above: Performed By: #### C BC #### [facility] [address] [place] [address] Dr. Lilly Webb EO # 0.1 103/ul Normal 0.0-0.7 [facility] Comment on above: Performed By: #### C BC #### [facility] [address] [place] [address] Dr. Lilly Webb Eosinophils/100 WBC (Bld) 1.6 % Normal 0.9-7.0 [facility] Comment on above: Performed By: #### C BC #### [facility] [address] [place] [address] Dr. Lilly Webb Erythrocyte distribution width (RBC) [Ratio] 11.9 % Normal 11.0-15.0 [facility] Comment on above: Performed By: #### C BC #### [facility] [address] [place] [address] Dr. Lilly Webb Hematocrit (Bld) [Volume fraction] 43.0 % Normal 36.0-48.0 [facility] Comment on above: Performed By: #### C BC #### [facility] [address] [place] [address] Dr. Lilly Webb Hemoglobin (Bld) [Mass/Vol] 13.6 g/dL Normal 12.0-16.0 [facility] Comment on above: Performed By: #### C BC #### [facility] [address] [place] [address] Dr. Lilly Webb IG # 0.01 10e3/ul Normal 0.00-0.03 [facility] Comment on above: Performed By: #### C BC #### [facility] [address] [place] [address] Dr. Lilly Webb IG % 0.2 % Normal 0.0-0.5 [facility] Comment on above: Performed By: #### C BC #### [facility] [address] [place] [address] Dr. Lilly Webb LYMPH # 1.5 103/ul Normal 1.2-3.8 [facility] Comment on above: Performed By: #### C BC #### [facility] [address] [place] [address] Dr. Lilly Webb Lymphocytes/100 WBC (Bld) 27.6 % Normal 20.5-60.0 [facility] Comment on above: Performed By: #### C BC #### [facility] [address] [place] [address] Dr. Lilly Webb MANUAL DIFF REQ NO Normal [facility] Comment on above: Performed By: #### C BC #### [facility] [address] [place] [address] Dr. Lilly Webb MCH (RBC) [Entitic mass] 30.8 pg Normal 26.7-34.0 [facility] Comment on above: Performed By: #### C BC #### [facility] [address] [place] [address] Dr. Lilly Webb MCHC (RBC) [Mass/Vol] 31.6 g/dL Normal 29.9-35.2 [facility] Comment on above: Performed By: #### C BC #### [facility] [address] [place] [address] Dr. Lilly Webb MCV (RBC) [Entitic vol] 97.5 fL Normal 81.0-99.0 [facility] Comment on above: Performed By: #### C BC #### [facility] [address] [place] [address] Dr. Lilly Webb MONO # 0.5 103/ul Normal 0.3-0.8 [facility] Comment on above: Performed By: #### C BC #### [facility] [address] [place] [address] Dr. Lilly Webb Monocytes/100 WBC (Bld) 8.1 % Normal 1.7-12.0 [facility] Comment on above: Performed By: #### C BC #### [facility] [address] [place] [address] Dr. Lilly Webb NEUT # 3.4 103/ul Normal 1.4-6.5 [facility] Comment on above: Performed By: #### C BC #### [facility] [address] [address] [address] Lilly Webb Neutrophils/100 WBC (Bld) 61.4 % Normal 43.0-75.0 [facility] Comment on above: Performed By: #### C BC #### [facility] [address] [address] [address] Lilly Webb Platelet mean volume (Bld) [Entitic vol] 10.5 fL Normal 9.5-13.5 [facility] Comment on above: Performed By: #### C BC #### [facility] [address] [place] [address] Dr. Lilly Webb PLT 183 103/ul Normal 150-450 [facility] Comment on above: Performed By: #### C BC #### [facility] [address] [place] [address] Dr. Lilly Webb RBC 4.41 106/ul Normal 4.20-5.40 [facility] Comment on above: Performed By: #### C BC #### [facility] [address] [place] [address] Dr. Lilly Webb WBC 5.6 103/ul Normal 4.0-11.0 [facility] Comment on above: Performed By: #### C BC #### [facility] [address] [place] [address] Dr. Lilly Webb LIPID PROFILEon 01-29-2022 CHOL-HDL RATIO NORM SEE BELOW Normal [facility] Comment on above: Result Comment: 3.3 - 4.4 LOW RISK 4.4 - 7.1 AVERAGE RISK 7.1 - 11.0 MODERATE RISK >11.0 HIGH RISK Performed By: #### L IPID, TSH, CMP #### [facility] [address] [place] [address] Dr. Lilly Webb Cholesterol [Mass/Vol] 183 mg/dL Normal <=200 [facility] Comment on above: Performed By: #### L IPID, TSH, CMP #### [facility] [address] [place] [address] Dr. Lilly Webb Cholesterol in HDL [Mass/Vol] 81 mg/dL Critically high 40-60 [facility] Comment on above: Performed By: #### L IPID, TSH, CMP #### [facility] [address] [address] [address] Lilly Webb Cholesterol in LDL [Mass/Vol] 91.0 mg/dL Normal [facility] Comment on above: Performed By: #### L IPID, TSH, CMP #### [facility] [address] [address] [address] Lilly Webb Cholesterol.total/Cho lesterol in HDL [Mass ratio] 2.3 {ratio} Normal [facility] Comment on above: Performed By: #### L IPID, TSH, CMP #### [facility] [address] [place] [address] Dr. Lilly Webb HDL NORMAL > or = 60 mg/dl - LO W CARDIOVASCULAR RISK <40 mg/dl - HIGH CARDIOVASCULAR RISK Normal [facility] Comment on above: Performed By: #### L IPID, TSH, CMP #### [facility] [address] [place] [address] Dr. Lilly Webb LDL CALC NORMAL SEE BELOW Normal [facility] Comment on above: Result Comment: <100 mg/dl OPTIMAL 100 - 129 mg/dl NEAR OR ABOVE OPTIMAL 130 - 159 mg/dl BORDERLINE HIGH 160 - 189 mg/dl HIGH >190 mg/dl VERY HIGH Performed By: #### L IPID, TSH, CMP #### [facility] [address] [place] [address] Dr. Lilly Webb Triglyceride [Mass/Vol] 55 mg/dL Normal <=150 [facility] Comment on above: Performed By: #### L IPID, TSH, CMP #### [facility] [address] [place] [address] Dr. Lilly Webb VLDL CALC 11.0 mg/dL Normal [facility] Comment on above: Performed By: #### L IPID, TSH, CMP #### [facility] [address] [place] [address] Dr. Lilly Webb PROF 14(COMP METB)on 022 Albumin [Mass/Vol] 4.1 g/dL Normal 3.4-5.0 [facility] Comment on above: Performed By: #### L IPID, TSH, CMP #### [facility] [address] [place] [address] Dr. Lilly Webb Albumin/Globulin [Mass ratio] 1.2 {ratio} Normal [facility] Comment on above: Performed By: #### L IPID, TSH, CMP #### [facility] [address] [place] [address] Dr. Lilly Webb ALP [Catalytic activity/Vol] 75 U/L Normal 46-116 [facility] Comment on above: Performed By: #### L IPID, TSH, CMP #### [facility] [address] [place] [address] Dr. Lilly Webb ALT [Catalytic activity/Vol] 21 U/L Normal 14-59 [facility] Comment on above: Performed By: #### L IPID, TSH, CMP #### [facility] [address] [place] [address] Dr. Lilly Webb Anion gap [Moles/Vol] 7.0 mmol/L Normal [facility] Comment on above: Performed By: #### L IPID, TSH, CMP #### [facility] [address] [place] [address] Dr. Lilly Webb AST [Catalytic activity/Vol] 13 U/L Critically low 15-37 [facility] Comment on above: Performed By: #### L IPID, TSH, CMP #### [facility] [address] [place] [address] Dr. Lilly Webb Bilirubin [Mass/Vol] 0.9 mg/dL Normal 0.2-1.0 [facility] Comment on above: Performed By: #### L IPID, TSH, CMP #### [facility] [address] [place] [address] Dr. Lilly Webb Calcium [Mass/Vol] 8.6 mg/dL Normal 8.5-10.1 [facility] Comment on above: Performed By: #### L IPID, TSH, CMP #### [facility] [address] [address] [address] Lilly Webb Chloride [Moles/Vol] 103 mmol/L Normal 98-107 [facility] Comment on above: Performed By: #### L IPID, TSH, CMP #### [facility] [address] [address] [address] Lilly Webb CO2 [Moles/Vol] 29.1 mmol/L Normal 21.0-32.0 [facility] Comment on above: Performed By: #### L IPID, TSH, CMP #### [facility] [address] [address] [address] Lilly Webb Creatinine [Mass/Vol] 0.80 mg/dL Normal 0.55-1.02 [facility] Comment on above: Performed By: #### L IPID, TSH, CMP #### [facility] [address] [place] [address] Dr. Lilly Webb EGFR-AF [place] ISLANDER >60 Normal >=60 [facility] Comment on above: Performed By: #### L IPID, TSH, CMP #### [facility] [address] [place] [address] Dr. Lilly Webb EGFR-NON AF [place] ISLANDER >60 Normal >=60 [facility] Comment on above: Performed By: #### L IPID, TSH, CMP #### [facility] [address] [place] [address] Dr. Lilly Webb Globulin (S) [Mass/Vol] 3.5 g/dL Normal [facility] Comment on above: Performed By: #### L IPID, TSH, CMP #### [facility] [address] [place] [address] Dr. Lilly Webb Glucose [Mass/Vol] 76 mg/dL Normal 74-106 [facility] Comment on above: Performed By: #### L IPID, TSH, CMP #### [facility] [address] [place] [address] Dr. Lilly Webb Potassium [Moles/Vol] 4.1 mmol/L Normal 3.5-5.1 [facility] Comment on above: Performed By: #### L IPID, TSH, CMP #### [facility] [address] [place] [address] Dr. Lilly Webb Protein [Mass/Vol] 7.6 g/dL Normal 6.1-8.2 [facility] Comment on above: Performed By: #### L IPID, TSH, CMP #### [facility] [address] [place] [address] Dr. Lilly Webb Sodium [Moles/Vol] 135 mmol/L Critically low 136-145 [facility] Comment on above: Performed By: #### L IPID, TSH, CMP #### [facility] [address] [place] [address] Dr. Lilly Webb Urea nitrogen [Mass/Vol] 12.0 mg/dL Normal 7.0-18.0 [facility] Comment on above: Performed By: #### L IPID, TSH, CMP #### [facility] [address] [place] [address] Dr. Lilly Webb Urea nitrogen/Creatinine [Mass ratio] 15.0 mg/mg Normal [facility] Comment on above: Performed By: #### L IPID, TSH, CMP #### [facility] [address] [place] [address] Dr. Lilly Webb TSHon 01-29-2022 TSH 1.715 uIU/mL Normal 0.470-4.680 [facility] Comment on above: Performed By: #### L IPID, TSH, CMP #### [facility] [address] [place] [address] Dr. Lilly Webb TSH RANGE SEE BELOW Normal [facility] Comment on above: Result Comment: <0.3 4 UIU/ml HYPERTHYROID 0.34-5.60 UIU/ml EUTHYROID >5.60 UIU/ml HYPOTHYROID Performed By: #### L IPID, TSH, CMP #### [facility] [address] [place] [address] Dr. Lilly Webb Vital Signs Date Time Vital Sign Value Performing Clinician Faci lity 07-20-2024 08:55-0400 Body height 165.[address] [facility] 07-20-2024 08:55-0400 Body mass index (BMI) [Ratio] 18.7 kg/m2 [facility] 07-20-2024 08:55-0400 Body weight 51.[address] [facility] 07-20-2024 08:55-0400 Diastolic blood pressure 64 mm[Hg] [facility] 07-20-2024 08:55-0400 Heart rate 72 /min [facility] 07-20-2024 08:55-0400 Respiratory rate 12 /min [facility] 07-20-2024 08:55-0400 Systolic blood pressure 96 mm[Hg] [facility] Encounters Encounter Date Encounter Type Care Provider Facility Start: 07-20-2024 End: 07-20-2024 ambulatory [facility] Work Phone: Start: 07-20-2024 End: 07-20-2024 Encounter for general adult medical examination without abnormal findings [facility] Start: 07-20-2024 End: 07-20-2024 Patient encounter procedure [facility] Work Phone: Start: 07-17-2024 Patient encounter status [facility] Start: 12-30-2023 End: 12-30-2023 ambulatory [facility] Work Phone: Start: 12-30-2023 End: 12-30-2023 Patient encounter procedure [facility] Work Phone: Start: 12-18-2023 End: 12-18-2023 ambulatory [facility] Work Phone: Start: 12-18-2023 End: 12-18-2023 Patient encounter procedure [facility] Work Phone: Start: 09-22-2023 End: 09-22-2023 ambulatory SAUL COLON Not Available Start: 08-07-2023 End: 08-07-2023 ambulatory Ayden José Other [facility] Other Start: 08-07-2023 Office outpatient vi sit 15 minutes Ayden José [facility] Start: 07-23-2023 End: 07-23-2023 ambulatory Ayden José Other [facility] Other Start: 07-23-2023 Office outpatient vi sit 15 minutes Ayden José [facility] Start: 12-02-2022 End: 12-03-[address] SAUL COLON . Facility:[facility] Start: 10-21-2022 End: 10-21-[address] SAUL COLON . Facility:[facility] Start: 10-21-2022 End: 10-22-[address] SAUL COLON . Facility:[facility] Start: 09-08-2022 End: 09-08-[address] SAUL COLON . Facility:[facility] Start: 09-08-2022 End: 09-09-[address] SAUL COLON . Facility:[facility] Start: 01-30-2022 Encounter for genera l adult medical examination without abnormal findings DR AYDEN JOSÉ [facility] Start: 01-29-2022 End: 01-30-[address] AYDEN JOSÉ Facility:[facility] Start: 01-29-2022 End: 01-30-2022 Encounter for general adult medical examination without abnormal findings DR AYDEN JOSÉ Facility:[facility] Start: 01-24-2022 End: 01-25-[address] AYDEN JOSÉ Facility:[facility] Plan of Treatment Date Care Activity Detail Author Comprehensive metabo lic 1999 panel - Serum or Plasma [facility] enter [facility] Payers Date Payer Category Payer Unknown [id number] 2.16.84 [id number] 1980 Unknown [id number] 2.16.84 [id number] 1980 Unknown [id number] [id number] 1980 Unknown [id number] 2.16.84 [id number] 1980 Unknown [id number] 2.16.84 [id number] 1980 Unknown [id number] 2.16.84 [id number] 1980 Unknown [id number] 2.16.84 [id number] 1980 Unknown [id number] 1959 Private Health Insurance [id number] Social History Date Type Detail Facility Sex Assigned At [facility] Other Start: 1980 Sex Assigned At Female F [facility] Evaluation note 08-07-2023 Note Date & Type [...] Treatment of any PND Codeine cough suppressant [facility] Other Evaluation note 07-23-2023 Note Date & [...] for congestion, Tylenol for pain and fever. [facility] Other History general Narrative - Reported 02-26-2013 Note Date & Type Note Facility 02-26-2013 History general N arrative - Reported Type Medical History Seasonal allergic rh initis due to pollen Surgical History Adenoidectomy 02/2013 Surgical History Right Middle Turbine ctomy, Right Maxillary Antrostomy 02/2011 Hospitalization History see surgical history [facility] Other Evaluation note Note Date & Type Note Facility Evaluation note No assessment information availa ble [facility] Work Phone: Evaluation note Note Date & Type Note Facility Evaluation note Diagnosis Onset Date Acute sinusitis noneactive Acute sinusitis noneactive [facility] Work Phone: Evaluation note Note Date & Type Note Facility Evaluation note Diagnosis Onset Date Screening mammogram for breast cancer acute Wellness examination acute [facility] Work Phone: Summary Purpose Family History No Family History Records FoundNo Family History Records Found Advance Directives Advance Directive Response Recorded Date/ Time Advance Directives No December 17 12:11pm Advance Directive Response Recorded Date/ Time Advance Directives No July 06, 2024 11:08am Chief Complaint and Reason for Visit Chief Complaint [phone] Chief Complaint [phone] sinus infection [phone] Reason for Visit Acute sinusitis Acute sinusitis Chief Complaint wellness/Lt elbow pa in Reason for Visit Screening mammogram for breast cancer Wellness examination Additional Source Comments INFORMATION SOURCE (unrecogn ized section and content) DATE CREATED AUTHOR 12/06/2022 [facility] DATE CREATED AUTHOR 'S ORGANIZ ATION 09/24/2023 [facility] EPIC REASON FOR VISIT (unrecogniz ed section and content) on going cough [phone] inus pressure- in [place]- Care Teams (unrecognized [...] BE BASED ON THE PRIMARY CLINICAL RECORDS. [facility] provides no warranty or guarantee of the accuracy or completeness of information in this document.
== END 2024-09-12 09:43 | disposition home or self-care (01) ==
LOC: MAMMO 09:43
PROVIDERS: PCP Internal Medicine; Visit Provider Obstetrics & Gynecology
DX: Z12.31 Encounter for screening mammogram for malignant neoplasm of breast (principal); Z80.0 Family history of malignant neoplasm of digestive organs
CPT/HCPCS: 77063; 77067

== ENCOUNTER 2025-02-01 19:50 | Outpatient (REF) | payer OTHER, SELFPAY ==
[2025-02-06 23:07] LABS: Age Gdln ACOG Testing Note (.); HPV Aptima Negative (Negative); IGP, Aptima HPV, rfx 16/18,45 Note (.)
== END 2025-02-01 19:51 | disposition home or self-care (01) ==
LOC: LAB 19:50
PROVIDERS: PCP Internal Medicine; Visit Provider Obstetrics & Gynecology
DX: Z01.419 Encounter for gynecological examination (general) (routine) without abnormal findings (principal)
CPT/HCPCS: 87624; 88175

== ENCOUNTER 2025-09-14 09:27 | Outpatient (OUT) | payer OTHER, SELFPAY ==
--- OUTSIDE RECORDS SUMMARY | 2025-09-14 09:31 | XMS_ITS | Clinical Summary ---
Author Organization [facility] Address [address] [place] [address], [address] [place] [address] Care Team Providers Care Glass Maker Name Role Phone Unavailable Primary Care Provider Unavailabl e Allergies No known active allergies Medications MedicationSigDispense QuantityRefillsLast FilledStart DateEnd DateStatus SPRINTEC 28 0.25-35 MG-MCG per tablet TAKE 1 TABLET BY MOUTH EVERY DAY11/05/2019Active fluticasone (FLONASE) 50 MCG/ACT nasal spray Indications:Acute bacterial sinusitis1 spray by Each Nostril route daily 2 Bottle Active Active Problems No known active problems Social History Tobacco UseTypesPacks/DayYears UsedDateSmoking Tobacco: NeverSmokeless Tobacco: Never Tobacco Cessation:Counseling Given: Yes CommentsUnknownSex and Gender InformationValueDate RecordedSex Assigned at BirthNot on fileLegal FsrSnkgcv89/26/2020 2:14 PM ESTGender IdentityNot on fileSexual OrientationNot on file Last Filed Vital Signs Vital SignReadingTime TakenCommentsBlood Mfciuwgm99/72011/23/2019 2:36 PM EST Talmy860311/23/2019 2:36 PM RSSKhmaqbcobuz92.3 ??C (99.1 ??F)11/23/2019 2:36 PM ESTRespiratory Gczw283511/23/2019 2:36 PM ESTOxygen Tozvsrgekl41%11/23/2019 2:36 PM ESTInhaled Oxygen Concentration--Wghpqj34 kg (114 lb 9.6 oz)11/23/2019 2:36 PM QGNCzngej502.1 cm (5' 5 )11/23/2019 2:36 PM ESTBody Mass Index19.0711/23/2019 2:36 PM EST Plan of Treatment Not on file Insurance * Guarantor: Frederic LauAccount TypeRelation to PatientDate of BirthPhone Billing AddressPersonal/NiootmBzzk53/[birth year][address] [address]
--- OUTSIDE RECORDS SUMMARY | 2025-09-14 09:31 | XMS_ITS | Clinical Summary ---
Author Organization [facility] Address [address] [place] [address] Care Team Providers Care Synthetic Chemist Name Role Phone Ayden Whiting Primary Care Provider [phone] Allergies No known active allergies Medications No known medications Family History Medical HistoryRelationNameCommentsNo Known ProblemsBrotherHypertensionFather StrokeMaternal GrandmotherDiabetesPaternal GrandfatherCancerPaternal Grandmother RelationNameStatusCommentsBrotherDaughterAliveFatherMaternal GrandmotherPaternal GrandfatherPaternal GrandmotherSonAlive Social History Tobacco UseTypesPacks/DayYears UsedDateSmoking Tobacco: Never Tobacco Cessation:Counseling Given: Not Answered Alcohol UseStandard Drinks/WeekCommentsYes0 (1 standard drink = 0.6 oz pure alcohol)AUDIT-CAnswerDate RecordedQ1: How often do you have a drink containing alcohol?Monthly or less09/03/2023Q2: How many drinks containing alcohol do you have on a typical day when you are drinking?1 or Q3: How often do you have six or more drinks on one occasion?Never09/03/2023CommentsNoSex and Gender InformationValueDate RecordedSex Assigned at BirthNot on fileLegal Sex Mtczoo0712/10/2022 7:23 PM EDTGender IdentityNot on fileSexual OrientationNot on file Last Filed Vital Signs Vital SignReadingTime TakenCommentsBlood Hrzogrhp045/7005 1:14 PM EDT Pulse--Temperature--Respiratory Rate--Oxygen Saturation--Inhaled Oxygen Concentration--Vrvchs84.7 kg (114 lb)02/01/2025 1:14 PM PCGWmaozm617.1 cm (5' 5 )10/21/2022 12:00 PM ESTBody Mass Index18.9710/21/2022 12:00 PM EST Plan of Treatment DateTypeDepartmentCare Team (Latest Contact Info)Mtwmlghcqxt76/12/2026 9:00 AM EDTOffice Visit [facility] [address] [place] [phone] Tyron Duffy DO [address] [place] [address] Health MaintenanceDue DateLast DoneCommentsCOVID-19 Vaccine ( season) Influenza Vaccine (#1)05/29/20252176Xwxjaqpro49/16/2025 09/12/2024, 09/11/2023, 09/08/2022ap Smear8002/01/2025, 09/22/2023 Cervical Cancer Phlpwifjf88/26/2028HPV/Gmbnoc0309/22/2028Pneumococcal Vaccine: Pediatrics (0 to 5 Years) and At-Risk Patients (6 to 64 Years)Aged OutNo longer eligible based on patient's age to complete this topic Procedures Procedure NamePriorityDate/TimeAssociated DiagnosisCommentsPAP SMEARRoutine 02/01/2025 12:00 AM EDTMM TOMOSYNTHESIS SCREENING BI09/12/2024 1:25 PM EST from Last 3 Months or Most Recently Relevant to Health Maintenance Results * Pap Smear (02/01/2025 12:00 AM EDT)Specimen (Source)Anatomical Location / LateralityCollection Method / VolumeCollection TimeReceived TimeSwabCervical swab / Unknown Narrative Authorizing ProviderResult TypeResult StatusCorey Tati DOLAB CYTOLOGY ORDERABLESFinal ResultPerforming OrganizationAddressCity/State/ZIP CodePhone Number EXTERNAL LAB * MM TOMOSYNTHESIS SCREENING BI (09/12/2024 1:25 PM EST)Anatomical Region LateralityModalityOtherSpecimen (Source)Anatomical Location / Laterality Collection Method / VolumeCollection TimeReceived Time09/12/2024 1:25 PM EST Narrative 09/12/2024 1:26 PM EST [facility] ?[address] ? [place] [address] ? Mammography Report ? Signed ? Patient: WILLI LAU L ?MR#: [id number] ?? : 1980 ?Acct:[id number] ?? Age/Sex: 43 / F ?ADM Date: 09/12/24 ?? Loc: MAMMO ? Attending Dr: Tryon Duffy D.O. ? Ordering Physician: Tyron Duffy D.O. ?Results: ? Date of Service: 09/12/24 ?Follow Up: ? Procedure(s): MM tomosynthesis screening BI ?? Accession Number(s): [id number] ? cc: Ayden Whiting D.O.; Tyron Duffy D.O. ? Patient Name: ? WILLI LAU ? MR#: [id number] ? : 1980 ? Exam Date: 09/12/2024 ?? Ordering Doctor: DR Tyron Duffy . ? RADIOLOGY REPORT ? PROCEDURE: ? MM TOMOSYNTHESIS SCREENING BI ? COMPARISON: ? MG MAMM SCREEN 3D IGNACIA CAD, 09/08/2022. ??MM TOMOSYNTHESIS ?? SCREENING BI, 09/11/2023. ? INDICATIONS: ? Screening ? Calculator Name ? NCI Breast Cancer Risk Assessment Tool ?? 5 Year Breast Cancer Risk ? 0.90% ?? Lifetime Breast Cancer Risk ? 12.10% ?? Personal Breast Cancer ?No ?? Personal Ovarian Cancer ? No ?? Treatments ? None ?? Family Cancers ? Grandmother-maternal with colon cancer at age 60. ? LOCATION: ? [facility] ? BREAST COMPOSITION: ? The breasts are extremely dense, which lowers the ?? sensitivity of mammography. ? FINDINGS: ? DIAGNOSTIC CATEGORY 1--NEGATIVE. NO CHANGE FROM COMPARISON ASSESSMENT. ? RIGHT BREAST: ??No significant suspicious finding. ? LEFT BREAST: ??No significant suspicious finding. ? RECOMMENDATIONS: ? ROUTINE MAMMOGRAM AND CLINICAL EVALUATION IN 12 MONTHS. ? PLEASE NOTE: ??A NORMAL MAMMOGRAM DOES NOT EXCLUDE THE POSSIBILITY OF BREAST ?? CANCER. ??A CLINICALLY SUSPICIOUS PALPABLE LUMP SHOULD BE BIOPSIED. ? Dictated by: Dharmesh Smyth MD on 09/12/2024 at 13:24 ? Approved by: Dharmesh Smyth MD on 09/12/2024 at 13:25 ? Dictated By: ?Dharmesh Smyth M.D. ? Signed By: ?09/12/24 1326 ? DD/ 1325 ? TD/TT: ? Skip Miner: Procedure Note Radiology, Radiologist, - 09/12/2024 [place] [address] Mammography Report Signed Patient: WILLI LAU LMR#: [id number] : 1980Acct:[id number] Age/Sex: 43 / FADM Date: 09/12/24 Loc: MAMMO Attending Dr: Tyron Duffy D.O. Ordering Physician: Tyron Duffy D.O.Results: Date of Service: 09/12/24Follow Up: Procedure(s): MM tomosynthesis screening BI Accession Number(s): [id number] cc: Ayden Whiting D.O.; Tyron Duffy D.O. Patient Name: WILLI LAU MR#: [id number] : 1980 Exam Date: 09/12/2024 Ordering Doctor: DR Tyron Duffy . RADIOLOGY REPORT PROCEDURE: MM TOMOSYNTHESIS SCREENING BI COMPARISON: MG MAMM SCREEN 3D IGNACIA CAD, 09/08/2022. MM TOMOSYNTHESIS SCREENING BI, 09/11/2023. INDICATIONS: Screening Calculator Name NCI Breast Cancer Risk Assessment Tool 5 Year Breast Cancer Risk 0.90% Lifetime Breast Cancer Risk 12.10% Personal Breast Cancer No Personal Ovarian Cancer No Treatments None Family Cancers Grandmother-maternal with colon cancer at age 60. LOCATION: [facility] BREAST COMPOSITION: The breasts are extremely dense, which lowers the sensitivity of mammography. FINDINGS: DIAGNOSTIC CATEGORY 1--NEGATIVE. NO CHANGE FROM COMPARISON ASSESSMENT. RIGHT BREAST: No significant suspicious finding. LEFT BREAST: No significant suspicious finding. RECOMMENDATIONS: ROUTINE MAMMOGRAM AND CLINICAL EVALUATION IN 12 MONTHS. PLEASE NOTE: A NORMAL MAMMOGRAM DOES NOT EXCLUDE THE POSSIBILITY OFBREAST CANCER. A CLINICALLY SUSPICIOUS PALPABLE LUMP SHOULD BE BIOPSIED. Dictated by: Dharmesh Smyth MD on 09/12/2024 at 13:24 Approved by: Dharmesh Smyth MD on 09/12/2024 at 13:25 Dictated By: Dharmesh Smyth M.D. Signed By:09/12/24 1326 DD/ 1325 TD/TT: Skip Miner: Authorizing ProviderResult TypeResult StatusCorey Tati DOCLINISYJESUS IMAGINGFinal Result from Last 3 Months or Most Recently Relevant to Health Maintenance Insurance Care Teams Team MemberRelationshipSpecialtyStart DateEnd Date Ball, Ayden E, DO [address] [place] [phone] PCP - GeneralInternal Wugedpdy52/26/23
--- OUTSIDE RECORDS SUMMARY | 2025-09-14 09:31 | XMS_ITS | Clinical Summary ---
Author Organization [facility] Address [id number] [address] [place] [address] Care Team Providers Care Virtual Customer Assistant Name Role Phone Unavailable Primary Care Provider Unavailabl e Social History Tobacco UseTypesPacks/DayYears UsedDateSmoking Tobacco: Never AssessedChildcare AnswerDate JneheyiwKwwjwdsqdIndffvi51/10/2019EmploymentAnswerDate Recorded TdxqdhfeolBvdbydw06/10/2019CommentsUnknownSex and Gender Information ValueDate RecordedSex Assigned at BirthNot on fileLegal BpvBysiox41/04/2015 12:27 PM EDTGender IdentityNot on fileSexual OrientationNot on file Plan of Treatment Not on file Medical Devices Not on file
--- NOTE | 2025-09-14 09:34 | MM_ITS ---
Patient Name: ARIANNA REED MR#: [id number] : 1980 Exam Date: 09/14/2025 Ordering Doctor: DR SAUL COLON . RADIOLOGY REPORT PROCEDURE: MM TOMOSYNTHESIS SCREENING BI COMPARISON: MM TOMOSYNTHESIS SCREENING BI, 09/12/2024. MM TOMOSYNTHESIS SCREENING BI, 09/11/2023. MG MAMM SCREEN 3D IGNACIA CAD, 09/08/2022. MG MAMM DIAGNOSTIC 3D IGNACIA CAD, 06/26/2021. INDICATIONS: Screening Calculator Name NCI Breast Cancer Risk Assessment Tool 5 Year Breast Cancer Risk 1.00% Lifetime Breast Cancer Risk 12.00% Personal Breast Cancer No Personal Ovarian Cancer No Treatments None Family Cancers Grandmother-maternal with colon cancer at age 60. LOCATION: [facility] BREAST COMPOSITION: The breasts are extremely dense, which lowers the sensitivity of mammography. FINDINGS: DIAGNOSTIC CATEGORY 1--NEGATIVE. RIGHT BREAST: No significant suspicious finding. LEFT BREAST: No significant suspicious finding. RECOMMENDATIONS: ROUTINE MAMMOGRAM AND CLINICAL EVALUATION IN 12 MONTHS. Dictated by: Norris Levin DO on 09/14/2025 at 11:33 Approved by: Norris Levin DO on 09/14/2025 at 11:42
== END 2025-09-14 09:28 | disposition home or self-care (01) ==
LOC: MAMMO 09:27
PROVIDERS: PCP Internal Medicine; Visit Provider Obstetrics & Gynecology
DX: Z12.31 Encounter for screening mammogram for malignant neoplasm of breast (principal); Z80.0 Family history of malignant neoplasm of digestive organs
CPT/HCPCS: 77063; 77067